=== PATIENT | male | born 1940 | race Two or more races ===

== ENCOUNTER 2018-06-18 13:53 | Emergency (ER) | payer MEDICARE ==
[~2018-06-18] VITALS: Ht 175.3 cm; Wt 86.4 kg
[2018-06-18] MEDS ORDERED: FentaNYL CITRATE-PF 100 MCG/2 ML VIAL IVP ONE (14:30)
[2018-06-18] MEDS ORDERED: LIDOCAINE 1% 10 ML VIAL INJ ONE (14:30)
[2018-06-18] MEDS ORDERED: SODIUM CHLORIDE 0.9% 1,000 ML IV ONE (15:15)
[2018-06-18] MEDS ORDERED: KETAMINE HCL 50 MG/ML 10 ML VIAL IVP ONE (15:15)
[2018-06-18 16:40] VITALS: BP 150/82
== END 2018-06-18 17:15 | disposition home or self-care (01) ==
LOC: EMS 13:54
DX: S43.101A Unspecified dislocation of right acromioclavicular joint, initial encounter (principal); E78.00 Pure hypercholesterolemia, unspecified; W19.XXXA Unspecified fall, initial encounter; Y93.02 Activity, running; Y92.89 Other specified places as the place of occurrence of the external cause; Y99.8 Other external cause status
CPT/HCPCS: 23650; 73030; 94681; 99152; 99285; J3010; J3490 ×2; J7030